=== PATIENT | male | born 1995 | race Caucasian/White ===

== ENCOUNTER 2018-08-19 17:17 | Emergency (ER) | payer SELFPAY ==
[~2018-08-19] VITALS: Ht 172.7 cm; Wt 73.0 kg
[~2018-08-19 17:17] MED LIST: NONE REPORTED
[2018-08-19] MEDS ORDERED: TETANUS, DIPHTHERIA, PERTUSSIS VAC/PF 0.5ML (>7YR OLD) IM ONE (18:30)
[2018-08-19] MEDS ORDERED: TETANUS AND DIPHTHERIA TOX/PF 0.5ML SYR (ADULT) IM ONE (18:30)
[2018-08-19 19:47] VITALS: BP 110/70
== END 2018-08-19 19:49 | disposition home or self-care (01) ==
LOC: ER 17:40
DX: S01.80XA Unspecified open wound of other part of head, initial encounter (principal); F17.200 Nicotine dependence, unspecified, uncomplicated; W33.01XA Accidental discharge of shotgun, initial encounter; Y93.89 Activity, other specified; Y92.89 Other specified places as the place of occurrence of the external cause; Y99.8 Other external cause status
CPT/HCPCS: 90471; 90714; 90715; 99284; 99406